=== PATIENT | male | born 1990 | race Caucasian/White ===

== ENCOUNTER → 2020-04-06 | Emergency (ER) | payer OTHER ==
[~2020-04-06] VITALS: Ht 195.6 cm; Wt 92.5 kg
[~2020-04-06] MED LIST: DOXYCYCLINE 10100 M2 PO
[2020-04-06 13:25] VITALS: BP 174/83
[2020-04-06 13:49] LABS: URINE BILIRUBIN NEGATIVE (Negative); URINE BLOOD NEGATIVE (Negative); URINE CLARITY CLEAR; URINE COLOR YELLOW; URINE GLUCOSE-RANDOM NEGATIVE (Negative); URINE KETONES NEGATIVE (Negative); URINE LEUKOCYTES-REFLEX NEGATIVE (Negative); URINE NITRITE-REFLEX NEGATIVE (Negative); URINE PROTEIN NEGATIVE (Negative); URINE UROBILINOGEN 0.2 E.U./dl (0.2-1.0)
== END ==
LOC: M.ERS 13:01
PROVIDERS: Emergency Medicine Emergency Medical Services
DX: Z11.3 Encounter for screening for infections with a predominantly sexual mode of transmission (principal)